=== PATIENT | male | born 1950 | race Caucasian/White ===

== ENCOUNTER 2017-10-14 07:11 | Inpatient (IN) | payer BC, OTHER ==
[~2017-10-14] VITALS: Ht 190.5 cm; Wt 138.7 kg
--- NOTE | ~2017-10-14 | H ---
[facility] [place] [address] HISTORY AND PHYSICAL Name: MAIDA REINOSO Room #: 160-1 ADM IN M.R.#: [id number] Admission: 10/14/17 Attend Phys: Mac Bhakta MD, Discharge: Date of : 54 Report #: [id number] THIS REPORT FOR: //name// CC: Mac Berry MD DATE OF SERVICE: 10/14/2017 HISTORY OF PRESENT ILLNESS: The patient is a 67-year-old male who presented to the Emergency Room as he drove over here. 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 He lives in [place]. Subsequently, had this substernal chest pain, pressure 6-7/10. He has never had this before and there were no prior warnings of this. He does present with an anterior wall recurrence of injury here on the EKG. Heparin has helped his discomfort some, still 4/10. With some ST-elevation on the monitor. No cardiac history and he takes no medications except for an aspirin. He has had a primary care physician in [place], Dr. Berry. He has not been treated for hypertension or hypercholesterolemia. He denies any family history. He is a pack a day smoker and fairly sedentary but is in security. PAST MEDICAL HISTORY: Positive only for tonsillectomy, he states and some borderline hypertension. ALLERGIES: No known drug allergies. SOCIAL HISTORY: He is . He has one child, living. He is a pack a day smoker and minimal alcohol intake. He is in security for [employer]. FAMILY HISTORY: Negative for premature coronary artery disease. REVIEW OF SYSTEMS: Essentially negative except for some occasional nocturia. Some increased fatigue and as stated above. PHYSICAL EXAMINATION: VITAL SIGNS: Pulse is 68 and blood pressure 148/90. HEENT: Eyes reveal xanthelasmas. Pharynx is clear. NECK: Shows preserved upstrokes without JVD or bruits. LUNGS: Clear. CARDIAC: Regular rate and rhythm. S1 and S2 distant. ABDOMEN: Soft, obese and nontender. EXTREMITIES: Reveal trace of edema. Distal pulses diminished. NEUROLOGICAL: Nonfocal. SKIN: Warm and dry without xanthoma or ulcer. MUSCULOSKELETAL: No gross joint deformity. [facility] [address] [place] [address] HISTORY AND PHYSICAL Name: MAIDA REINOSO Room #: 160-1 ADM IN M.R.#: [id number] Admission: 10/14/17 Attend Phys: Mac Bhakta MD, Discharge: Date of : 54 Report #: [id number] ASSESSMENT: 1. Acute anterior wall myocardial infarction. 2. Tobacco abuse. 3. Hypertension. 4. Suspected hypercholesterolemia. RECOMMENDATIONS AND PLAN: The patient has been given aspirin, Lipitor and heparin bolus. Pain is improved to 4/10, still has a slight elevation on the monitor. We will proceed emergently to the catheterization lab to delineate his anatomy and intervention as indicated. Risks, benefits and alternatives discussed with the patient and he does elect to proceed. There is no current family around. Thank you for asking me to assist care of this patient. By: 0744 0824 Mac Bhakta MD, FACC /nt
--- NOTE | ~2017-10-14 | EKG ---
[address] [address] ELECTROCARDIOGRAM REPORT Name: MAIDA REINOSO Room #: 203-P ADM IN M.R.#: [id number] Admission: 10/14/17 Attend Phys: Mac Bhakta MD, Discharge: Date of : 54 Report #: [id number] THIS REPORT FOR: //name// [facility] ED Test Date: 2017-10-14 Test Time: 07:08:09 Pat Name: MAIDA REINOSO Department: Room: 203 P Gender: M Technician Submarine Cable Equipment: CARLA : 1950 Requested By: Mac Bhakta Order Number: [id number] MD: Julian Nogueira Measurements Intervals [place] Rate: 60 P: 42 [place]: 195 QRS: 31 QRSD: 79 T: 5 QT: 448 QTc: 448 Interpretive Statements Sinus rhythm Anterior infarct, acute (LAD) Lateral leads are also involved Baseline wander in lead(s) V3 No previous ECG available for comparison Electronically Signed On 10-14-2017 17:58:22 METAL CASTING TRADES WORKER by Julian Nogueira [email or web address] <ELECTRONICALLY SIGNED> By: Julian Nogueira MD 10/14/17 2983 0708 Julian Nogueira MD /EPI
--- NOTE | ~2017-10-14 | EKG ---
[address] [address] ELECTROCARDIOGRAM REPORT Name: MAIDA REINOSO Room #: 203-P ADM IN M.R.#: [id number] Admission: 10/14/17 Attend Phys: Mac Bhakta MD, Discharge: Date of : 54 Report #: [id number] THIS REPORT FOR: //name// [facility] Test Date: 2017-10-15 Test Time: 06:02:33 Pat Name: MAIDA REINOSO Department: Room: 203 P Gender: M Finisher Plate: : 1950 Requested By: Mac Bhakta Order Number: [id number] MD: Julian Nogueira Measurements Intervals [place] Rate: 75 P: -17 [place]: 184 QRS: 24 QRSD: 95 T: 96 QT: 357 QTc: 399 Interpretive Statements Sinus rhythm Anteroseptal infarct, age indeterminate ST changes similar to prior ekg Electronically Signed On 10-15-2017 11:34:19 MARKET RESEARCH LEAD by Julian Nogueira [email or web address] <ELECTRONICALLY SIGNED> By: Julian Nogueira MD 10/15/17 1134 0602 1 Julian Nogueira MD /YUSRA
--- NOTE | ~2017-10-14 | 2DMMODE ---
[facility] [address] [employer] [facility] [place] [address] 2 D/M-MODE ECHOCARDIOGRAM Name: MAIDA REINOSO Room #: 203-P [facility] IN .R.#: [id number] Admission: 10/14/17 Attend Phys: Mac Bhakta, Discharge: Date of : 54 Date of Service: 10/16/17 1026 Report #: [id number] THIS REPORT FOR: //name// APPROVED REPORT Study performed: 10/15/2017 12:52:30 EXAM: Comprehensive 2D, Doppler, and color-flow Echocardiogram Patient Location: Bedside Status: on-call BSA: 2.63 HR: 74 bpm BP: 139/86 mmHg Rhythm: NSR Other Information Study Quality: Adequate Risk Factors: Cardiac Risk Factors: HTN, Smoking Indications Acute HI Chest Pain 2D Dimensions IVSd: 11.94 (7-11mm) LVOT Diam: 22.25 (18-24mm) LVDd: 54.37 mm PWd: 11.91 (7-11mm) Ascending Ao: 37.96 (22-36mm) LVDs: 43.61 (25-40mm) Left Atrium: 33.43 (27-40mm) Aortic Root: 35.79 mm Choudhary's LVEF: 45.00 % Volumes Left Atrial Volume (Systole) Single Plane 4CH: 40.59 mL Single Plane 2CH: 37.82 mL LA ESV Index: 17.00 mL/m2 Aortic Valve AoV Peak Anthony.: 1.26 m/s AO Peak Gr.: 6.75 mmHg LVOT Max P.71 mmHg LVOT Max V: 0.96 m/s SMITA Vmax: 2.98 cm2 [facility] [address] [place] [address] 2 D/M-MODE ECHOCARDIOGRAM Name: MAIDA REINOSO Room #: 203-P [facility] IN [facility].#: [id number] Admission: 10/14/17 Attend Phys: Mac Bhakta, Discharge: Date of : 54 Date of Service: 10/16/17 1026 Report #: [id number] Mitral Valve E/A Ratio: 0.7 MV Decel. Time: 267.90 ms MV E Max Anthony.: 0.65 m/s MV A Anthony.: 0.93 m/s MV PHT: 77.69 ms TDI E/Lateral E': 10.83 E/Medial E': 13.00 Medial E' Anthony.: 0.05 m/s Lateral E' Anthony.: 0.06 m/s Pulmonary Valve PV Peak Anthony.: 0.74 m/s PV Peak Gr.: 2.22 mmHg Pulmonary Vein P Vein S: 0.54 m/s P Vein A: 0.26 m/s P Vein D: 0.41 m/s P Vein A Dur.: 189.2 msec P Vein S/D Ratio: 1.32 Tricuspid Valve RAP Estimate: 7.00 mmHg Left Ventricle The left ventricle is normal size. Mid-distal septum and apex are hypokinetic. Mild concentric left ventricular hypertrophy. Left ventricular systolic function is mildly decreased. distal septal apical hypokinesis LVEF is 45-50%. Grade I - abnormal relaxation pattern. Right Ventricle The right ventricle is normal size. The right ventricular systolic function is normal. Atria The left atrium size is normal. The right atrium size is normal. Aortic Valve The aortic valve is normal in structure. No aortic regurgitation is present. There is no aortic valvular stenosis. Mitral Valve The mitral valve is normal in structure. There is no mitral valve regurgitation noted. No evidence of mitral valve stenosis. [facility] [address] [place] [address] 2 D/M-MODE ECHOCARDIOGRAM Name: AMIDA REINOSO Room #: 203-P ADM IN M.R.#: [id number] Admission: 10/14/17 Attend Phys: Mac Bhakta, Discharge: Date of : 54 Date of Service: 10/16/17 1026 Report #: [id number] Tricuspid Valve The tricuspid valve is normal in structure. There is no tricuspid valve regurgitation noted. Pulmonic Valve The pulmonary valve is normal in structure. There is no pulmonic valvular regurgitation. Great Vessels The aortic root is normal in size. IVC is normal in size and collapses with >50% inspiration Pericardium There is no pericardial effusion. <Conclusion> The left ventricle is normal size. Mild concentric left ventricular hypertrophy. Left ventricular systolic function is mildly decreased. distal septal apical hypokinesis LVEF is 45-50%. Grade I - abnormal relaxation pattern. The right ventricle is normal size. The left atrium size is normal. The aortic valve is normal in structure. There is no mitral valve regurgitation noted. There is no tricuspid valve regurgitation noted. There is no pericardial effusion. <ELECTRONICALLY SIGNED> By: Mac Bhakta MD, FACC 10/16/17 1026 1026 1026 Mac Bhakta MD, FACC /INF
--- NOTE | ~2017-10-14 | EKG ---
[address] [address] ELECTROCARDIOGRAM REPORT Name: MAIDA REINOSO Room #: 203-P ADM IN M.R.#: [id number] Admission: 10/14/17 Attend Phys: Mac Bhakta MD, Discharge: Date of : 54 Report #: [id number] THIS REPORT FOR: //name// [facility] Test Date: 2017-10-14 Test Time: 10:34:58 Pat Name: MAIDA REINOSO Department: Room: 203 Gender: M Multiple Sclerosis Nurse: VINEET : 1950 Requested By: Mac Bhakta Order Number: [id number] MD: Julian Nogueira Measurements Intervals [place] Rate: 73 P: -8 [place]: 197 QRS: 19 QRSD: 82 T: 233 QT: 351 QTc: 387 Interpretive Statements Sinus rhythm Anterior infarct, old Nonspecific T abnormalities, lateral leads No previous ECG available for comparison Electronically Signed On 10-14-2017 12:48:49 PURCHASING BUYER by Julian Nogueira [email or web address] <ELECTRONICALLY SIGNED> By: Julian Nogueira MD 10/14/17 1248 D: 11/1033 33 Julian Nogueira MD /YUSRA
--- NOTE | ~2017-10-14 | EKG ---
[address] [address] ELECTROCARDIOGRAM REPORT Name: MAIDA REINOSO Room #: 203-P ADM IN M.R.#: [id number] Admission: 10/14/17 Attend Phys: Mac Bhakta MD, Discharge: Date of : 54 Report #: [id number] THIS REPORT FOR: //name// [facility] ED Test Date: 2017-10-14 Test Time: 07:15:54 Pat Name: MAIDA REINOSO Department: Room: 203 Gender: M Lime Trimmer: VOLODYMYR : 1950 Requested By: Marii Collins Order Number: [id number] MD: Julian Nogueira Measurements Intervals [place] Rate: 67 P: 66 ID: 196 QRS: 35 QRSD: 81 T: -25 QT: 450 QTc: 475 Interpretive Statements Sinus rhythm Extensive anterior infarct, possibly acute No previous ECG available for comparison Electronically Signed On 10-14-2017 12:47:41 INFORMATION RESOURCE CONSULTANT by Julian Nogueira [email or web address] <ELECTRONICALLY SIGNED> By: Julian Nogueira MD 10/14/17 1247 0715 4 Julian Nogueira MD /YUSRA
--- NOTE | ~2017-10-14 | D ---
[facility] [place] [address] DISCHARGE SUMMARY Name: MAIDA REINOSO Room #: 203-P [facility] IN M.R.#: [id number] Admission: 10/14/17 Attend Phys: Mac Bhakta MD, Discharge: 10/17/17 Date of : 54 Report #: [id number] THIS REPORT FOR: //name// CC: Mac Bhakta [facility] COURSE: The patient is a 67-year-old male who presented here on after a sudden onset of chest pain while starting work at [employer]. He had an anterior current of injury, taken emergently to the catheterization lab, which revealed a totally occluded proximal LAD. A 3.0 x 18 Resolute drug-eluting stent was placed there after successfully opened it. This was wraparound LAD. This was postdilated to 3.2 mm. There is a moderate size second OM branch that has a 75% to 80% proximal lesion, which we will evaluate at a later time for possible intervention. Mild disease in the dominant right. There was some stunning of the anterior apex and distal septum. The echo shows an EF in the 45% range. I suspect that this is stunned, I believe this vessel was opened up within 90 minutes of his onset of pain became he came emergently to the hospital. He has done well postoperatively. He is up and ambulating, he feels well. No recurrent pain. He remains in sinus rhythm in the 70s and 80s, blood pressure has been well controlled at 118/64 today. DISCHARGE MEDICATIONS: Will include lisinopril 20 and Nicoderm patch and full aspirin, Plavix 75 a day, Lipitor 80, metoprolol tartrate 25 b.i.d. He will enter into cardiac rehab in one week. He is off work for at least 2 weeks until I can reevaluate him. Low fat, low sodium, cholesterol diet, slowly increase aerobic activity as instructed per cardiac rehab. Diet, exercise, weight loss will be paramount for him, but most importantly smoking cessation. I should note his cholesterol was 138, his LDL was 76, his HDL 38, and triglycerides 124. I will discharge him. I will decrease the dose of atorvastatin to 40 mg a day. Troponin peaked at 180, but there is some washout effect, I am not sure of the significance of that. DISCHARGE DIAGNOSES: 1. Acute anterior wall myocardial infarction with emergent percutaneous transluminal coronary angioplasty stent of the left anterior descending. 2. Mild ischemic cardiomyopathy (I expect improvement). 3. Hypercholesterolemia. 4. Borderline hypertension. By: 0902 1058 Mac Bhakta MD, FACC /nt
[2017-10-14 07:12] VITALS: BP 170/88
[2017-10-14 07:24] LABS: BASOPHILS 1.1 % (0.0-2.0); EOSINOPHILS 2.6 % (0.0-3.0); HEMATOCRIT 45.7 % (42.0-52.0); HEMOGLOBIN 15.6 gm/dL (14.0-18.0); LYMPHOCYTES 42.4 % (24.0-44.0); MCH 31.4 pg (26.0-34.0); MCV 92.4 fL (80.0-100.0); MONOCYTES 8.3 % (1.0-8.0); PLATELET COUNT 300 thou/uL (150-400); POLYS 45.6 % (36.0-66.0); RBC 4.95 mil/uL (4.50-6.00); RDW 13.3 % (10.5-14.5); WBC 15.3 thou/uL (4.0-11.0)
[2017-10-14 07:32] LABS: POC CA IONIZED 4.6 mg/dL (4.5-5.3); POC CREATININE 0.8 mg/dL (0.6-1.3); POC POTASSIUM 3.9 mmol/L (3.5-5.1)
[2017-10-14 07:38] LABS: APTT 23.1 Seconds (24.5-32.8); PROTIME 9.4 Seconds (9.3-11.4)
[2017-10-14 07:46] LABS: MANUAL DIFF NO
[2017-10-14 08:02] LABS: ANION GAP 9 mmol/L (7-16); BUN 13 mg/dL (7-18); CHLORIDE 105 mmol/L (98-107); CO2 28 mmol/L (21-32); GLUCOSE 163 mg/dL (74-106); POTASSIUM 3.5 mmol/L (3.5-5.1); SODIUM 142 mmol/L (136-145)
[2017-10-14 08:10] LABS: TROPONIN-I < 0.04 ng/mL (<0.06)
[2017-10-14 11:15] VITALS: BP 129/82
[2017-10-14 14:51] VITALS: BP 146/77
[2017-10-14 19:58] VITALS: BP 142/80
[2017-10-14 20:30] VITALS: BP 129/82
[2017-10-15 03:40] VITALS: BP 140/87
[2017-10-15 06:29] LABS: HEMATOCRIT 39.8 % (42.0-52.0); MCH 31.2 pg (26.0-34.0); MCHC 34.2 g/dL (28.0-37.0); MCV 91.1 fL (80.0-100.0); RBC 4.37 mil/uL (4.50-6.00); RDW 13.4 % (10.5-14.5); WBC 11.3 thou/uL (4.0-11.0)
[2017-10-15 06:32] LABS: HEMOGLOBIN 13.6 gm/dL (14.0-18.0)
[2017-10-15 06:52] LABS: ANION GAP 10 mmol/L (7-16); BUN 12 mg/dL (7-18); CALCIUM 8.6 mg/dL (8.5-10.1); CHLORIDE 105 mmol/L (98-107); CHOLESTEROL 138 mg/dL (<200); CO2 25 mmol/L (21-32); CREATININE 0.9 mg/dL (0.7-1.3); GLUCOSE 108 mg/dL (74-106); HDL CHOLESTEROL 38 mg/dL (>40); LDL CHOLESTEROL 76 mg/dL (<100); SODIUM 140 mmol/L (136-145); TC:HDL 3.6 Ratio (Not establshd); TRIGLYCERIDE 124 mg/dL (<150); VLDL 25 mg/dL (<40)
[2017-10-15 06:55] VITALS: BP 146/84
[2017-10-15 07:12] LABS: TROPONIN-I 81.66 ng/mL (<0.06)
[2017-10-15 11:07] VITALS: BP 139/86
[2017-10-15 15:30] VITALS: BP 146/82
[2017-10-15 19:06] VITALS: BP 139/69
[2017-10-15 22:00] VITALS: BP 139/69
[2017-10-16 04:23] VITALS: BP 122/81
[2017-10-16 07:10] VITALS: BP 118/64
[2017-10-16 11:20] VITALS: BP 83/50
[2017-10-16 16:05] VITALS: BP 111/55
[2017-10-16 19:40] VITALS: BP 102/57
[2017-10-17 03:24] VITALS: BP 109/71
[2017-10-17] MEDS ORDERED: LOPRESSOR25 PO (08:30)
[2017-10-17] MEDS ORDERED: ATORVASTATIN CA40 MG PO (08:30)
[2017-10-17] MEDS ORDERED: NICOTINE TRANSD21 M1 TRANSDERM (08:30)
[2017-10-17] MEDS ORDERED: ASPIRIN325 PO (08:30)
[2017-10-17] MEDS ORDERED: CLOPIDOGREL75 MG PO (08:30)
[2017-10-17] MEDS ORDERED: BENAZEPRIL HCL20 MG PO (08:30)
[2017-10-17 09:03] VITALS: BP 121/75
[2017-10-17 09:37] VITALS: BP 121/75
[2017-10-17 10:06] VITALS: BP 121/75
== END 2017-10-17 10:42 | disposition home or self-care (01) | DRG 247 ==
LOC: ER 07:11 → 2N 07:47 → TBACV 07:47 → 2N 08:00
PROVIDERS: Emergency Medicine; Internal Medicine Cardiovascular Disease
PROC: B2111ZZ Fluoroscopy of Multiple Coronary Arteries using Low Osmolar Contrast (ICD-10-PCS; principal; 2017-10-17)
PROC: 027034Z Dilation of Coronary Artery, One Artery with Drug-eluting Intraluminal Device, Percutaneous Approach (ICD-10-PCS; principal; 2017-10-17)
PROC: 4A023N7 Measurement of Cardiac Sampling and Pressure, Left Heart, Percutaneous Approach (ICD-10-PCS; principal; 2017-10-17)
PROC: B2151ZZ Fluoroscopy of Left Heart using Low Osmolar Contrast (ICD-10-PCS; principal; 2017-10-17)
DX: I21.09 ST elevation (STEMI) myocardial infarction involving other coronary artery of anterior wall (principal); I25.5 Ischemic cardiomyopathy; E78.00 Pure hypercholesterolemia, unspecified; F17.210 Nicotine dependence, cigarettes, uncomplicated; I10 Essential (primary) hypertension; Z90.49 Acquired absence of other specified parts of digestive tract
CPT/HCPCS: 10081

== ENCOUNTER 2018-01-06 06:40 | Observation (INO) | payer BC, OTHER ==
[~2018-01-06] VITALS: Ht 190.5 cm; Wt 127.0 kg
--- NOTE | ~2018-01-06 | EKG ---
[address] [address] ELECTROCARDIOGRAM REPORT Name: MAIDA REINOSO Room #: 201-[facility] M.R.#: [id number] Admission: 01/06/18 Attend Phys: Mac Bhakta MD, Discharge: Date of : 54 Report #: [id number] THIS REPORT FOR: //name// [facility] Test Date: 2018-01-06 Test Time: 14:44:04 Pat Name: MAIDA REINOSO Department: Room: 201 Gender: M Thermostat Maker: maximino : 1950 Requested By: Mac Bhakta Order Number: [id number] MD: Julian Nogueira Measurements Intervals [place] Rate: 66 P: -25 [place]: 189 QRS: 16 QRSD: 99 T: 71 QT: 406 QTc: 426 Interpretive Statements Sinus rhythm Probable anterior infarct, age indeterminate Compared to ECG 01/06/2018 07:00:28 No significant changes Electronically Signed On 01-06-2018 16:30:45 PATTERN SETTER by Julian Nogueira [email or web address] <ELECTRONICALLY SIGNED> By: Julian Nogueira MD 01/06/18 1630 1444 1444 Julian Nogueira MD /YUSRA
--- NOTE | ~2018-01-06 | D ---
[facility] [place] [address] DISCHARGE SUMMARY Name: MAIDA REINOSO Room #: 201-P [facility] Jennifer M.RRoselyn#: [id number] Admission: 01/06/18 Attend Phys: Mac Bhakta MD, Discharge: 01/07/18 Date of : 54 Report #: [id number] THIS REPORT FOR: //name// CC: Mac Berry DATE OF SERVICE: 01/06/2018 HOSPITAL COURSE: The patient is a 67-year-old male who was admitted for staged procedure had a limited emergent anterior wall infarct in September. Subsequently, high-grade circ OM lesion, but elected to stage that. Came back 3.0 x 18, had been previously placed in the LAD that was totally occluded. The second OM branch was the culprit than yesterday and received a 2.5 x 12 Resolute drug-eluting stent, postdilated 2.8 mm. He did well. Laboratory work is unremarkable. He is up and ambulating and feels well. There is no groin hematoma. He will continue his same medical regimen including dual antiplatelet therapy. Continue with atorvastatin 40, full aspirin for a month and down to a baby, lisinopril 10, metoprolol 25, and Nicoderm as needed. Continued in the cardiac rehab, weight loss. No lifting for 48 hours. No lying in tub, Jacuzzi or jon for a week. No MRI or dental work for 3 months. IMPRESSION: 1. Coronary artery disease with successful percutaneous transluminal coronary angioplasty stent of high-grade circumflex OM lesion to 0% with a 2.5 x 12 Resolute drug-eluting stent. Prior left anterior descending stent 3.0 x 18 was widely patent. 2. Preserved left ventricular function. 3. Hypertension. 4. Hypercholesterolemia. 5. History of tobacco use, currently markedly has stopped. Followup is scheduled in 3 months in my office. Follow up with Dr. Keon Berry, who is primary physician as scheduled. Thank you for asking me to assist in the care of this patient. <ELECTRONICALLY SIGNED> By: Mac Bhakta MD, FACC 01/17/18 1427 0814 1000 Mac Bhakta MD, FACC /nt
--- NOTE | ~2018-01-06 | EKG ---
[address] [place] [address] ELECTROCARDIOGRAM REPORT Name: MAIDA REINOSO Room #: 201-P [facility] M.R.#: [id number] Admission: 01/06/18 Attend Phys: Mac Bhakta MD, Discharge: Date of : 54 Report #: [id number] THIS REPORT FOR: //name// [facility] Test Date: 2018-01-07 Test Time: 06:06:40 Pat Name: MAIDA REINOSO Department: Room: 201 P Gender: M Health Safety Engineer: : 1950 Requested By: Mac Bhakta Order Number: [id number] MD: Blake Hess Measurements Intervals [place] Rate: 71 P: -31 [place]: 183 QRS: 36 QRSD: 94 T: 74 QT: 418 QTc: 455 Interpretive Statements Sinus rhythm Anterior infarct, old Compared to ECG 01/06/2018 14:44:04 No significant changes Electronically Signed On 01-07-2018 7:50:17 WEB CONTENT EXECUTIVE by Blake Hess [email or web address] <ELECTRONICALLY SIGNED> By: Blake Hess MD, [facility] 01/07/18 0750 06 06 Blake Hess MD, [facility] /EPI
--- NOTE | ~2018-01-06 | EKG ---
[place] [address] [employer] [place] [address] ELECTROCARDIOGRAM REPORT Name: MAIDA REINOSO [id number] Admission: 01/06/18 Attend Phys: Mac Bhakta MD, Discharge: Date of : 54 Report #: [id number] THIS REPORT FOR: //name// [facility] Test Date: 2018-01-06 Test Time: 07:00:28 Pat Name: MAIDA REINOSO Department: Room: Gender: M Awning Maker And Installer: : 1950 Requested By: Mac Bhakta Order Number: [id number] MD: Blake Hess Measurements Intervals [place] Rate: 70 P: 14 [place]: 185 QRS: 36 QRSD: 99 T: 63 QT: 412 QTc: 445 Interpretive Statements Sinus rhythm Anteroseptal infarct, age indeterminate Compared to ECG 10/15/2017 06:02:[address] elevation no longer present Electronically Signed On 01-06-2018 8:45:45 LAUNDERETTE ATTENDANT by Blake Hess [email or web address] <ELECTRONICALLY SIGNED> By: Blake Hess MD, [facility] 01/06/1845 9 9 Blake Hess MD, [facility] /EPI
--- NOTE | ~2018-01-06 | CATHLAB ---
[facility] [address] [place] [address] INVASIVE PROCEDURE REPORT Name: MAIDA REINOSO Room #: 201-P [facility] IN M.R.#: [id number] Admission: 01/06/18 Attend Phys: Mac Bhakta, Discharge: Date of : 54 Date of Service: 01/07/18 0940 Report #: [id number] THIS REPORT FOR: //name// APPROVED REPORT Patient Details Patient Status: Out-Patient Room #: The patient is a 67 year-old male Event Personnel Mac Bhakta Consumer Loan Manager, Katarina St Monitor, Inés Tanner RTR, Dorie Rooney Wes RN, Vika Scott RN RN, Rica Bruce RTR Monitor Procedures Performed Art Access - R femoral artery* 94400 Initial Mod Sed Same Phys/QHP Gr5y 284626 65194 Mod Sed Same Phys/QHP Ea 310593 Left Heart Cath w/or w/o Coronaries 2015341 [facility] [address] w/wo Plasty Single CIRC 141388 Hemostasis w/ Mynx Procedure Narrative The patient was brought electively to the Cardiac Catheterization Laboratory and was prepped and draped in a sterile manner. The Right Groin^ was infiltrated with 1% Lidocaine subcutaneous anesthesia. A PINNACLE 6FR Sheath #[id number] sheath was inserted into the RFA^. Coronary angiography was performed using coronary diagnostic catheters. The right coronary system was accessed and visualized with a JR 4 catheter. The left coronary system was accessed and visualized with a JL 4 catheter. The left ventricle was accessed and visualized with a Pigtail catheter. Left ventriculogram was performed in WHITE projection. Closure device was deployed with a 6 Fr Mynx. The patient tolerated the procedure well and there were no complications associated with the procedure. There was no hematoma. Intraoperative Conscious Sedation Sedation start time: 08:55 Case end Time: 09:34 Fentanyl 25.0 mcg Versed 1.5 mg Fluoro Time: 6.10 minutes Dose: DAP 9930.21 cGycm2 1388 mGy Contrast Type and Amount: Omnipaque 150 ml Hemodynamics The aortic pressure is 128/67 mmHg with a mean of 93 mmHg. [facility] [address] [place] [address] INVASIVE PROCEDURE REPORT Name: MAIDA REINOSO Room #: 201-P [facility] IN ..#: [id number] Admission: 01/06/18 Attend Phys: Mac Bhakta, Discharge: Date of : 54 Date of Service: 01/07/18 0940 Report #: [id number] ventricular pressure is 133/2 mmHg with a mean of mmHg. The left ventricular end diastolic pressure is 30 mmHg. PCI Technique Lesion Percutaneous coronary intervention was performed on the second obtuse marginal branch segment. A LAUNCHER 6FR EBU 4 #[id number] Guide Catheter was used to engage the ostium. A Luge Wire .014 x 182CM #[id number] Interventional Guidewire was used to cross the lesion. BALLOON DILATION A Balloon catheter Sprinter OTW 2.5 x 12 #[id number] was inserted and inflated up to 8.00atm for 31seconds. STENT DEPLOYMENT A drug-eluting stent RESOLUTE OTW 2.25 X 12 #[id number] was inserted and inflated up to 14.00atm for 35seconds. Conclusion #1 normal left ventricular size with subtle anterior wall leg EF near normal 50-55% #2 left main large giving rise to LAD and circumflex. No occlusive disease #3 proximal LAD 40% proximal mid vessel stent is widely patent with brisk flow into the LAD diagonal system diffusely diseased distally #4 dominant right coronary artery with mild ostial disease and a proximal lesion of 50% giving rise to PDA AYUSH with mild disease it is a dominant vessel #5 successful PTCA stent of a high-grade proximal circumflex OM 2 lesion Robel of a 2.5 x 12 resolute to 2.75 mm 0% residual YING grade 3 flow and a large OM branch #6 OM1 OM 3 of mild to moderate disease will follow Recommendations plan continue aggressive risk factor modification dual antiplatelet therapy to continue at least 6 months. No lifting for 48 hours no line tub Jacuzzi or [place] for a week. No MRI or dental work for 3 months. Transfer patient CCU in stable condition <ELECTRONICALLY SIGNED> By: Mac Bhakta MD, FACC 01/07/18939 9 9 Mac Bhakta MD, FACC /INF
[~2018-01-06 06:40] MED LIST: ASPIRIN325 PO; ATORVASTATIN CA40 MG PO; BENAZEPRIL HCL20 MG PO; CLOPIDOGREL75 MG PO; LOPRESSOR25 PO; NICOTINE TRANSD21 M1 TRANSDERM
[2018-01-06] MEDS ORDERED: ASPIR 8181 M1 PO ×2 (06:59→16:45)
[2018-01-06] MEDS ORDERED: LISINOPRIL10 MG PO (07:01)
[2018-01-06 07:22] VITALS: BP 126/73
[2018-01-06 07:32] LABS: HEMATOCRIT 36.6 % (42.0-52.0); HEMOGLOBIN 12.8 gm/dL (14.0-18.0); MCH 31.7 pg (26.0-34.0); MCHC 34.9 g/dL (28.0-37.0); MCV 90.9 fL (80.0-100.0); RBC 4.02 mil/uL (4.50-6.00); RDW 13.4 % (10.5-14.5); WBC 8.3 thou/uL (4.0-11.0)
[2018-01-06 07:48] LABS: CALCIUM 9.1 mg/dL (8.5-10.1); CREATININE 1.1 mg/dL (0.7-1.3); POTASSIUM 3.7 mmol/L (3.5-5.1)
[2018-01-06 12:25] VITALS: BP 120/84
[2018-01-06 16:56] VITALS: BP 123/71
[2018-01-06 19:27] VITALS: BP 117/69
[2018-01-06 23:51] VITALS: BP 119/58
[2018-01-07 04:52] LABS: HEMATOCRIT 33.7 % (42.0-52.0); MCH 32.2 pg (26.0-34.0); MCHC 35.6 g/dL (28.0-37.0); MCV 90.3 fL (80.0-100.0); RBC 3.74 mil/uL (4.50-6.00); RDW 13.6 % (10.5-14.5); WBC 7.4 thou/uL (4.0-11.0)
[2018-01-07 05:09] LABS: ANION GAP 8 mmol/L (7-16); BUN 13 mg/dL (7-18); CALCIUM 8.5 mg/dL (8.5-10.1); CHLORIDE 107 mmol/L (98-107); CO2 26 mmol/L (21-32); GLUCOSE 84 mg/dL (74-106); POTASSIUM 3.9 mmol/L (3.5-5.1); SODIUM 141 mmol/L (136-145); TROPONIN-I < 0.04 ng/mL (<0.06)
[2018-01-07 05:24] VITALS: BP 120/61
[2018-01-07 07:06] VITALS: BP 120/73
[2018-01-07 08:26] VITALS: BP 120/73
== END 2018-01-07 09:50 | disposition home or self-care (01) ==
LOC: CATH 06:40 → 2N 06:53 → CATH 10:42 → 2N 01-07 09:50
PROVIDERS: Internal Medicine Cardiovascular Disease
DX: I25.119 Atherosclerotic heart disease of native coronary artery with unspecified angina pectoris (principal); I10 Essential (primary) hypertension; E78.00 Pure hypercholesterolemia, unspecified; I25.5 Ischemic cardiomyopathy; I25.2 Old myocardial infarction; Z87.891 Personal history of nicotine dependence

== ENCOUNTER → 2020-04-30 | Outpatient (CLI) | payer OTHER ==
[~2020-04-30] MED LIST changes: +ASPIR 8181 M1 PO; +LISINOPRIL10 MG PO
== END ==
LOC: SJCVC 16:40
PROVIDERS: ATTEND Internal Medicine Cardiovascular Disease
DX: R94.31 Abnormal electrocardiogram [ECG] [EKG] (principal); I21.09 ST elevation (STEMI) myocardial infarction involving other coronary artery of anterior wall; I25.10 Atherosclerotic heart disease of native coronary artery without angina pectoris; I10 Essential (primary) hypertension; E78.00 Pure hypercholesterolemia, unspecified; I25.5 Ischemic cardiomyopathy; Z95.5 Presence of coronary angioplasty implant and graft

== ENCOUNTER → 2020-12-13 | Outpatient (CLI) | payer OTHER | LOC: SJCVCIMAG 11-28 08:28 → SJCVC 11:16 → SJCVCIMAG 11:16 | PROVIDERS: ATTEND Internal Medicine Cardiovascular Disease | DX: I08.1 Rheumatic disorders of both mitral and tricuspid valves (principal); R42 Dizziness and giddiness; I25.5 Ischemic cardiomyopathy; I25.119 Atherosclerotic heart disease of native coronary artery with unspecified angina pectoris; E78.00 Pure hypercholesterolemia, unspecified; I42.9 Cardiomyopathy, unspecified; R53.83 Other fatigue; R09.89 Other specified symptoms and signs involving the circulatory and respiratory systems; Z87.891 Personal history of nicotine dependence; Z79.82 Long term (current) use of aspirin; Z79.899 Other long term (current) drug therapy ==

== ENCOUNTER → 2021-01-22 | Outpatient (CLI) | payer OTHER | LOC: SJCVCIMAG 01-01 09:04 | PROVIDERS: ATTEND Internal Medicine Cardiovascular Disease | DX: I65.23 Occlusion and stenosis of bilateral carotid arteries (principal); R09.89 Other specified symptoms and signs involving the circulatory and respiratory systems; I25.10 Atherosclerotic heart disease of native coronary artery without angina pectoris; E78.5 Hyperlipidemia, unspecified; R06.00 Dyspnea, unspecified; R53.83 Other fatigue; I25.5 Ischemic cardiomyopathy; I10 Essential (primary) hypertension; E66.9 Obesity, unspecified; I25.2 Old myocardial infarction; Z87.891 Personal history of nicotine dependence; Z79.82 Long term (current) use of aspirin; Z79.899 Other long term (current) drug therapy; R10.9 Unspecified abdominal pain ==

== ENCOUNTER → 2021-08-21 | Outpatient (CLI) | payer OTHER | LOC: SJCVC 09:48 | PROVIDERS: ATTEND Internal Medicine Cardiovascular Disease | DX: R94.31 Abnormal electrocardiogram [ECG] [EKG] (principal); I25.119 Atherosclerotic heart disease of native coronary artery with unspecified angina pectoris; I10 Essential (primary) hypertension; E78.00 Pure hypercholesterolemia, unspecified; I25.5 Ischemic cardiomyopathy; I25.2 Old myocardial infarction; R06.02 Shortness of breath; R09.89 Other specified symptoms and signs involving the circulatory and respiratory systems; Z87.891 Personal history of nicotine dependence; Z79.82 Long term (current) use of aspirin; Z79.899 Other long term (current) drug therapy; Z72.89 Other problems related to lifestyle ==

== ENCOUNTER → 2021-10-27 | Outpatient (CLI) | payer OTHER | LOC: SJCVC 14:23 | PROVIDERS: ATTEND Internal Medicine Cardiovascular Disease | DX: R94.31 Abnormal electrocardiogram [ECG] [EKG] (principal); I25.119 Atherosclerotic heart disease of native coronary artery with unspecified angina pectoris; I25.5 Ischemic cardiomyopathy; I10 Essential (primary) hypertension; E78.00 Pure hypercholesterolemia, unspecified; J43.9 Emphysema, unspecified; F17.210 Nicotine dependence, cigarettes, uncomplicated; Z72.89 Other problems related to lifestyle; Z79.82 Long term (current) use of aspirin; Z79.899 Other long term (current) drug therapy ==